=== PATIENT | female | born 1970 ===

== ENCOUNTER 2016-08-25 09:07 | Day surgery (SDC) | payer OTHER ==
[2016-08-25 09:29] VITALS: BMI 21.5
[2016-08-25 09:37] VITALS: O2SAT 100
[2016-08-25] MEDS ORDERED: Lactated Ringer's 500 ML IV ONE (10:18)
--- NOTE | 2016-08-25 10:20 | CP.SDSHP ---
Same Day Surgery H & P - History Proposed Procedure: EGD Pre-Op Diagnosis: dyspepsia - Previous Medical/Surgical History Comments: lupus - Allergies Allergies: Allergies No Known Allergies Allergy (Verified 07/14/16 16:36) - Current Medications Current Medications: see med list - Physical Exam General Appearance: NAD Vital Signs: Vital Signs 08/25/16 09:29 Temperature 99.1 F Pulse Rate 71 Respiratory 19 Rate Blood Pressure 108/70 O2 Sat by Pulse 100 Oximetry Mental Status: Alert & Oriented x3 Heart: WNL Lungs: WNL GI: WNL - {Optional Preform as Required} Abdomen: WNL - Impression Impression: 46 year old female with h/o lupus for evaluation of dyspepsia Pt. Evaluated Today:Candidate for Anesthesia & Procedure: Yes - Date & Time Date: 08/25/16 Time: 10:20 Short Stay Discharge - Short Stay Discharge Admitting Diagnosis/Reason for Visit: DYSPEPSIA, CONSTIPATION Disposition: HOME/ ROUTINE
[2016-08-25] MEDS ORDERED: Propofol 10 mg/ml Inj (20 ML) ONE (10:22)
[2016-08-25 12:10] VITALS: BP 100/64; PULSE 69; RESP 12; TEMP 98
== END 2016-08-25 11:50 | disposition home or self-care (01) ==
LOC: C.ENDO 09:07
PROVIDERS: ATTEND Internal Medicine Gastroenterology
DX: K29.50 Unspecified chronic gastritis without bleeding (principal)
CPT/HCPCS: 43239; 84703; 88305; J2704; J7120

== ENCOUNTER 2017-01-20 16:03 | Emergency (ER) | payer OTHER ==
[2017-01-20 16:04] VITALS: BMI 21.5
[2017-01-20 16:20] VITALS: RESP 18; TEMP 97.9; O2SAT 99
--- NOTE | 2017-01-20 17:50 | C.PDOC ---
History Of Present Illness Pt c/o b/l eye discomfort. Time Seen by Provider: 01/20/17 17:06 Chief Complaint (Nursing): Eye Problem History Per: Patient Onset/Duration Of Symptoms: Days (about 2 weeks) Current Symptoms Are (Timing): Still Present Injury To Eye?: No Severity: Moderate Quality: "Pain" Wears Contact Lens?: No Associated Symptoms: Other (discomfort) Additional History Per: Prior Records Past Medical History Reviewed: Historical Data, Nursing Documentation, Vital Signs Vital Signs: Last Vital Signs Temp 97.9 F 01/20/17 16:16 Pulse 79 01/20/17 16:16 Resp 18 01/20/17 16:16 BP 104/73 01/20/17 16:16 Pulse Ox 99 01/20/17 16:16 - Medical History PMH: Anemia (WITH IRON INFUSION), Gastritis Other PMH: Lupus Surgical History: Cholecystectomy, Endoscopy - [facility] Procedures ESOPHAGOGASTRODUODENOSCOPY [EGD] W/CLOSED BIOPSY (12/25/14) Family History: States: Unknown Family Hx - Social History Hx Tobacco Use: No Hx Alcohol Use: No Hx Substance Use: No - Immunization History Hx Tetanus Toxoid Vaccination: No Hx Influenza Vaccination: No Hx Pneumococcal Vaccination: No Review Of Systems Except As Marked, All Systems Reviewed And Found Negative. Constitutional: Negative for: Fever, Weakness Eyes: Negative for: Redness Cardiovascular: Negative for: Chest Pain Respiratory: Negative for: Shortness of Breath Gastrointestinal: Negative for: Vomiting, Abdominal Pain Musculoskeletal: Negative for: Neck Pain Skin: Negative for: Rash Neurological: Negative for: Weakness, Numbness, Seizures, Altered Mental Status Physical Exam - Physical Exam Appears: Non-toxic, No Acute Distress Skin: Normal Color, Warm, Dry Head: Atraumatic, Normacephalic Eye(s): bilateral: Normal Inspection, PERRL, EOMI Neck: Normal ROM, Supple Cardiovascular: Rhythm Regular Respiratory: Normal Breath Sounds, No Accessory Muscle Use Gastrointestinal/Abdominal: Soft, No Tenderness Extremity: Normal ROM Neurological/Psych: Oriented x3, Normal Motor, Normal Sensation ED Course And Treatment O2 Sat by Pulse Oximetry: 99 Pulse Ox Interpretation: Normal Progress Note: Pt already has an appointment with the gas line installer in 1 week. Disposition Counseled Patient/Family Regarding: Diagnosis, Need For Followup, Rx Given - Disposition Referrals: Doug Espionsa MD [Staff Provider] - Disposition: HOME/ ROUTINE Disposition Time: 17:51 Condition: STABLE Additional Instructions: Follow up with the gas line installer (eye doctor) as scheduled for further evaluation and treatment. Return to the ER if you develop worsening of symptoms or if you have any other concerns. Prescriptions: Polyethylene Glycol/Polyvinyl [Artificial Tears] 1 drop OU QID PRN #1 bottle PRN Reason: Dry Eyes Forms: [facility] (Mauritanian), General Discharge Instructions, Gen Discharge Inst Mauritanian Print Language: STATELESS - Clinical Impression Clinical Impression: Discomfort of both eyes
[2017-01-20 18:20] VITALS: BP 106/75; PULSE 81
== END 2017-01-20 18:16 | disposition home or self-care (01) ==
LOC: C.ER 16:03
DX: H57.13 Ocular pain, bilateral (principal); M32.9 Systemic lupus erythematosus, unspecified

== ENCOUNTER 2017-02-03 21:43 | Emergency (ER) | payer OTHER ==
[2017-02-03 21:43] VITALS: BMI 21.5
[2017-02-03 22:37] VITALS: O2SAT 99
--- NOTE | 2017-02-04 00:43 | CT ---
EXAM: CT Head Without Intravenous Contrast CLINICAL HISTORY: 46 years old, female; Pain; Headache; Patient HX: 9-26-15; Additional info: Str TECHNIQUE: Axial computed tomography images of the head/brain without intravenous contrast. All CT scans at this facility use one or more dose reduction techniques, viz.: automated exposure control; ma/kV adjustment per patient size (including targeted exams where dose is matched to indication; i.e. head); or iterative reconstruction technique. Coronal and sagittal reformatted images were created and reviewed. COMPARISON: MR - BRAIN WITHOUT CONTRAST 07/07/2015 10:34:49 AM FINDINGS: Brain: No intracranial hemorrhage. No mass. No definite edema. Ventricles: No hydrocephalus. Bones/joints: No acute fracture. Soft tissues: Unremarkable. Sinuses: No acute sinusitis. Mastoid air cells: No mastoid effusion. Orbits: Unremarkable as visualized. IMPRESSION: 1. No acute intracranial abnormality.
[2017-02-04 01:03] VITALS: BP 107/74; PULSE 72; RESP 18; TEMP 97.7
--- NOTE | 2017-02-04 01:36 | C.PDOC ---
History Of Present Illness 46 year old female presents to the ED with complaints of left sided facial swelling associated with tingling and ear pain intermittiently for 5-6 days with associated headache and nasal congestion. Patient denies mouth pain, fever , weakness, or numbness. Time Seen by Provider: 02/03/17 22:55 Chief Complaint (Nursing): Headache History Per: Patient History/Exam Limitations: no limitations Onset/Duration Of Symptoms: Days (5-6 days ) Current Symptoms Are (Timing): Still Present Preceeding Symptoms: None Associated Symptoms: denies: Nausea, Vomiting, Extremity Weakness Recent travel outside of the [place]: No Past Medical History Reviewed: Historical Data, Nursing Documentation, Vital Signs Vital Signs: Last Vital Signs Temp 97.7 F 02/04/17 01:00 Pulse 72 02/04/17 01:00 Resp 18 02/04/17 01:00 BP 107/74 02/04/17 01:00 Pulse Ox 99 02/04/17 03:44 - Medical History PMH: Anemia (WITH IRON INFUSION), Gastritis Surgical History: Cholecystectomy, Endoscopy - [facility] Procedures ESOPHAGOGASTRODUODENOSCOPY [EGD] W/CLOSED BIOPSY (12/25/14) Family History: States: Unknown Family Hx - Social History Hx Tobacco Use: No Hx Alcohol Use: No Hx Substance Use: No - Immunization History Hx Tetanus Toxoid Vaccination: No Hx Influenza Vaccination: No Hx Pneumococcal Vaccination: No Review Of Systems Constitutional: Negative for: Fever, Chills ENT: Positive for: Ear Pain (left ear pain), Nose Congestion, Other (left facial swelling ). Negative for: Ear Discharge, Nose Pain, Nose Discharge, Throat Pain, Throat Swelling Respiratory: Negative for: SOB with Excertion Gastrointestinal: Negative for: Nausea, Vomiting Skin: Negative for: Rash Neurological: Positive for: Headache. Negative for: Weakness, Numbness Physical Exam - Physical Exam Appears: Non-toxic, No Acute Distress Skin: Warm, Dry Head: Atraumatic, Tenderness (minimal tenderness to left frontal sinus area ), No Swelling, No Abrasion, No Laceration, Other (no facial paresis or droop) Eye(s): bilateral: Normal Inspection, PERRL, EOMI Ear(s): Bilateral: Normal Nose: Normal, No Discharge Oral Mucosa: Moist Teeth: Other (no dental abscess ) Throat: Normal, No Erythema, No Exudate Neck: Normal ROM, Supple Chest: Symmetrical, No Deformity Cardiovascular: Rhythm Regular, No Murmur Respiratory: Normal Breath Sounds, No Rales, No Rhonchi, No Wheezing Extremity: Normal ROM, No Tenderness Extremity: Bilateral: Atraumatic, Normal ROM Neurological/Psych: Oriented x3, Normal Speech, Normal Cognition, Normal Cranial Nerves, No Cerebellar Signs, Normal Motor, Normal Sensation Gait: Steady ED Course And Treatment O2 Sat by Pulse Oximetry: 99 (RA) Pulse Ox Interpretation: Normal - CT Scan/US CT Head Without Intravenous Contrast Other Rad Studies (CT/US): Read By Radiologist, Radiology Report Reviewed CT/US Interpretation: FINDINGS: Brain: No intracranial hemorrhage. No mass. No definite edema. Ventricles: No hydrocephalus. Bones/joints: No acute fracture. Soft tissues: Unremarkable. Sinuses: No acute sinusitis. Mastoid air cells: No mastoid effusion. Orbits: Unremarkable as visualized. IMPRESSION : 1. No acute intracranial abnormality. Progress Note: Head CT was ordered and patient was given ultram. Pt agrees with plan and will follow up in clinic Reassessment Condition: Improved Disposition Counseled Patient/Family Regarding: Diagnosis, Need For Followup, Rx Given - Disposition Disposition: HOME/ ROUTINE Disposition Time: 01:34 Condition: STABLE Additional Instructions: Sabina las medicinas Sigue en clinica Regresa en emergencia si peor Prescriptions: Cetirizine HCl [Zyrtec] 10 mg PO DAILY #20 capsule Ibuprofen [Motrin] 600 mg PO Q6H #20 tab Mometasone Furoate [Nasonex] 2 spray NS DAILY #1 bottle Instructions: Rhinosinusitis (ED), Acute Headache (ED) Forms: [employer] (Romansh) Print Language: SLOVAK - Clinical Impression Clinical Impression: Sinusitis, Headache
== END 2017-02-04 01:52 | disposition home or self-care (01) ==
LOC: C.ER 21:43
DX: J32.9 Chronic sinusitis, unspecified (principal); R51 Headache

== ENCOUNTER 2017-05-29 18:21 | Emergency (ER) | payer OTHER ==
[2017-05-29 18:21] VITALS: BMI 21.5
[2017-05-29 18:31] VITALS: BP 101/69; PULSE 94; TEMP 99.2; O2SAT 99
--- NOTE | 2017-05-29 18:47 | C.PDOC ---
History Of Present Illness 46 y/o female presents to the ER complaining of cough which has been present for 2 weeks. Patient reprots that she was seen at another hospital and treated with Zithromax. Patient states that she finished the Zithromax but she still has a cough. Patient reports having a subjective fever. Patient denies having shortness of breath or chest pain Time Seen by Provider: 05/29/17 18:33 Chief Complaint (Nursing): Cough, Cold, Congestion History Per: Patient History/Exam Limitations: no limitations Onset/Duration Of Symptoms: Days Current Symptoms Are (Timing): Still Present Associated Symptoms: Fever (subjective fever), Cough Severity: Moderate Past Medical History Reviewed: Historical Data, Nursing Documentation, Vital Signs Vital Signs: Last Vital Signs Temp 99.2 F 05/29/17 18:27 Pulse 94 H 05/29/17 18:27 Resp 20 05/29/17 19:39 BP 101/69 05/29/17 18:27 Pulse Ox 99 05/29/17 19:42 - Medical History PMH: Anemia (WITH IRON INFUSION), Gastritis, Migraine Denies: Chronic Kidney Disease Surgical History: Cholecystectomy, Endoscopy - [facility] Procedures ESOPHAGOGASTRODUODENOSCOPY [EGD] W/CLOSED BIOPSY (12/25/14) Family History: States: No Known Family Hx - Social History Hx Tobacco Use: No Hx Alcohol Use: No Hx Substance Use: No - Immunization History Hx Tetanus Toxoid Vaccination: No Hx Influenza Vaccination: No Hx Pneumococcal Vaccination: No Review Of Systems Constitutional: Positive for: Fever (subjective fever). Negative for: Chills ENT: Negative for: Nose Congestion, Throat Pain Cardiovascular: Negative for: Chest Pain Respiratory: Positive for: Cough. Negative for: Shortness of Breath Gastrointestinal: Negative for: Nausea, Vomiting, Diarrhea Genitourinary: Negative for: Dysuria Musculoskeletal: Negative for: Neck Pain Neurological: Negative for: Headache, Dizziness Physical Exam - Physical Exam Appears: Non-toxic, No Acute Distress Skin: Normal Color, Warm Head: Atraumatic, Normacephalic Eye(s): bilateral: Normal Inspection, EOMI Ear(s): Bilateral: Normal Nose: Normal Oral Mucosa: Moist Throat: Normal, No Erythema, No Exudate Neck: Supple Chest: Symmetrical Cardiovascular: Rhythm Regular, No Murmur Respiratory: Normal Breath Sounds, No Accessory Muscle Use, No Rales, No Rhonchi , No Wheezing Gastrointestinal/Abdominal: Normal Exam, Soft, No Tenderness Extremity: Normal ROM Neurological/Psych: Oriented x3, Normal Speech, Normal Motor, Normal Sensation Gait: Steady ED Course And Treatment O2 Sat by Pulse Oximetry: 99 (RA) Pulse Ox Interpretation: Normal - Radiology CXR: Interpreted by Me, Viewed By Me CXR Interpretation: Yes: No Acute Disease Medical Decision Making Medical Decision Making: patient with cough for 2 weeks. No fever in ED and lungs clear bilaterally. patient seen on 05/16 at [facility] treated with Zithromax Plan: --CXR CXR was normal. Patient was given prednisone and cough medicine. Patient discharged and told to follow up with primary care doctor. Disposition Counseled Patient/Family Regarding: Diagnosis, Need For Followup, Rx Given - Disposition Referrals: Cristian Keane MD [Staff Provider] - Disposition: HOME/ ROUTINE Disposition Time: 19:30 Condition: GOOD Additional Instructions: Recetas enviadas a orosco farmacia [place] prednisona diariamente [place] medicamento para la tos segn sea necesario Trace un seguimiento con orosco mdico de cabecera Prescriptions sent to your pharmacy Take prednisone daily Take cough medicine as needed follow up with your primary doctor Prescriptions: Prednisone 50 mg PO DAILY #4 tablet Promethazine DM [Phenergan DM Syrup] 5 ml PO Q8 PRN #3 oz PRN Reason: Cough Instructions: Upper Respiratory Infection (ED) Forms: [employer] (Surinamese) Print Language: HUNGARIAN - POA Present On Arrival: None - Clinical Impression Clinical Impression: Upper respiratory infection - PA / SLOT KEY PERSON / Resident Statement MD/DO has reviewed & agrees with the documentation as recorded. - Scribe Statement The provider has reviewed the documentation as recorded by the Cortneyibe Janki Martinez Provider Attestation All medical record entries made by the Scribe were at my direction and personally dictated by me. I have reviewed the chart and agree that the record accurately reflects my personal performance of the history, physical exam, medical decision making, and the department course for this patient. I have also personally directed, reviewed, and agree with the discharge instructions and disposition.
[2017-05-29 19:39] VITALS: RESP 20
--- NOTE | 2017-05-30 17:24 | RAD ---
HISTORY: cough COMPARISON: 02/03/2015 TECHNIQUE: Chest PA and lateral FINDINGS: LUNGS: No active pulmonary disease. PLEURA: No significant pleural effusion identified. No pneumothorax apparent. CARDIOVASCULAR: Normal. OSSEOUS STRUCTURES: No significant abnormalities. VISUALIZED UPPER ABDOMEN: Normal. OTHER FINDINGS: None. IMPRESSION: No active disease.
== END 2017-05-29 19:39 | disposition home or self-care (01) ==
LOC: C.ER 18:21
DX: J06.9 Acute upper respiratory infection, unspecified (principal)

== ENCOUNTER 2017-09-02 01:05 | Emergency (ER) | payer OTHER ==
[2017-09-02 01:23] VITALS: BMI 24.6
[2017-09-02 01:30] VITALS: RESP 18
--- NOTE | 2017-09-02 02:00 | C.PDOC ---
History Of Present Illness 47 year old female presents to the ED c/o right arm pain for the pat 3 weeks. Patient was seen by her PMD yesterday who told her pain could be due to a right upper back lipoma. Patient was given prescription for Motrin and referral to a surgeon. However patient still c/o of pain and is requesting reevaluation. Patient denies injury, fall, trauma, CP, SOB. Time Seen by Provider: 09/02/17 01:31 Chief Complaint (Nursing): Upper Extremity Problem/Injury History Per: Patient History/Exam Limitations: no limitations Onset/Duration Of Symptoms: Days Current Symptoms Are (Timing): Still Present Quality: "Pain" Exacerbating Factor(s): Movement Recent travel outside of the [place]: No Additional History Per: Patient Past Medical History Reviewed: Historical Data, Nursing Documentation, Vital Signs Vital Signs: Last Vital Signs Temp 98.1 F 09/02/17 02:30 Pulse 75 09/02/17 02:30 Resp 18 09/02/17 02:30 BP 125/71 09/02/17 02:30 Pulse Ox 98 09/02/17 03:58 - Medical History PMH: Anemia (WITH IRON INFUSION), Gastritis, Migraine Denies: Chronic Kidney Disease Surgical History: Cholecystectomy, Endoscopy - [facility] Procedures ESOPHAGOGASTRODUODENOSCOPY [EGD] W/CLOSED BIOPSY (12/25/14) Family History: States: Unknown Family Hx - Social History Hx Tobacco Use: No Hx Alcohol Use: No Hx Substance Use: No - Immunization History Hx Tetanus Toxoid Vaccination: No Hx Influenza Vaccination: No Hx Pneumococcal Vaccination: No Review Of Systems Constitutional: Negative for: Fever, Chills Cardiovascular: Negative for: Chest Pain Respiratory: Negative for: Shortness of Breath Musculoskeletal: Positive for: Shoulder Pain Skin: Negative for: Rash Neurological: Negative for: Weakness, Numbness Physical Exam - Physical Exam Appears: Non-toxic, No Acute Distress Skin: Normal Color, Warm, Dry Head: Atraumatic, Normacephalic Eye(s): bilateral: Normal Inspection Nose: No Discharge Oral Mucosa: Moist Neck: Normal ROM, Supple Chest: Symmetrical Cardiovascular: Rhythm Regular, No Murmur Respiratory: Normal Breath Sounds, No Rales, No Rhonchi, No Wheezing Gastrointestinal/Abdominal: Soft, No Tenderness, No Guarding, No Rebound Back: Other (lipoma 4x6 cm lipoma in her upper back, right posterior shoulder) Extremity: Normal ROM, No Tenderness, Capillary Refill (< 2 seconds), No Swelling Extremity: Bilateral: Normal Color And Temperature, Normal ROM Pulses: Left Radial: Normal, Right Radial: Normal Neurological/Psych: Oriented x3, Normal Motor, Normal Sensation Gait: Steady ED Course And Treatment O2 Sat by Pulse Oximetry: 98 (ON RA) Pulse Ox Interpretation: Normal Progress Note: Plan: - Toradol 15 mg IM. - arm sling. On reassessment, patient is resting comfortably, and is in no acute distress. Patient was instructed to follow up with general surgeon for further evaluation. Disposition Counseled Patient/Family Regarding: Diagnosis, Need For Followup, Rx Given - Disposition Referrals: [facility] [Outside] Disposition: HOME/ ROUTINE Disposition Time: 02:09 Condition: STABLE Additional Instructions: Please follow up with pMD Continue ibuprofen Make appointment with Gen surgery as referred Return to ER if worse Instructions: Lipoma , Shoulder Pain (DC) Forms: [employer] (Lithuanian) - Clinical Impression Clinical Impression: Lipoma of back, Right shoulder pain - PA / RESIDENTIAL TECH / Resident Statement MD/DO has reviewed & agrees with the documentation as recorded. - Scribe Statement The provider has reviewed the documentation as recorded by the Scribe Som Nicole All medical record entries made by the Cortneyibidalia were at my direction and personally dictated by me. I have reviewed the chart and agree that the record accurately reflects my personal performance of the history, physical exam, medical decision making, and the department course for this patient. I have also personally directed, reviewed, and agree with the discharge instructions and disposition.
[2017-09-02 02:37] VITALS: BP 125/71; PULSE 75; TEMP 98.1
[2017-09-02 03:53] VITALS: O2SAT 98
== END 2017-09-02 02:37 | disposition home or self-care (01) ==
LOC: C.ER 01:05
DX: D17.1 Benign lipomatous neoplasm of skin and subcutaneous tissue of trunk (principal); M25.511 Pain in right shoulder
CPT/HCPCS: 82948; 96372; 99285; J1885

== ENCOUNTER 2018-01-05 11:11 | Day surgery (SDC) | payer OTHER ==
[2017-12-17 11:51] VITALS: BMI 24.6
[2018-01-05] MEDS ORDERED: Lidocaine 2% MPF (5 ml) Inj ONE ×2 (13:52→14:10)
[2018-01-05] MEDS ORDERED: ceFAZolin IV 1 gm in Dextrose 1 GM/50 ML BAG IVPB ONE (13:54)
[2018-01-05] MEDS ORDERED: Bupivacaine 0.25% 20 ML INJ IJ ONE (13:54)
[2018-01-05] MEDS ORDERED: Propofol 10 mg/ml Inj (20 ML) ONE ×2 (14:07→14:15)
[2018-01-05] MEDS ORDERED: Midazolam 2 MG/2 ML VIAL ONE (14:07)
[2018-01-05] MEDS ORDERED: ePHEDrine 50 mg/ml Inj ONE (14:37)
--- NOTE | 2018-01-05 14:56 | PCM.SURG1 ---
Surgeon's Initial Post Op Note - Surgeon's Notes Surgeon: Eber Extruder Tender: Jamie PGY4 Type of Anesthesia: IV Sedation, Local Pre-Operative Diagnosis: R shoulder lipoma Operative Findings: lipoma Post-Operative Diagnosis: same Operation Performed: Excision of right shoulder lipoma Specimen/Specimens Removed: lipoma Estimated Blood Loss: EBL {In ML}: 5 Blood Products Given: N/A Drains Used: No Drains Post-Op Condition: Good Date of Surgery/Procedure: 01/05/18 Time of Surgery/Procedure: 14:55
[2018-01-05] MEDS ORDERED: HYDROmorphone 0.5 mg/0.5 ml ISec IVP PRN (14:58)
[2018-01-05 16:30] VITALS: RESP 16; O2SAT 100
[2018-01-05 16:58] VITALS: BP 101/58; PULSE 72; TEMP 98
--- NOTE | 2018-01-12 18:01 | PCM.OP ---
Operative Report - Operative Report Date of Surgery/Procedure: 01/05/18 Time of Surgery/Procedure: 16:00 Surgeon: Reinaldo Velázquez MD Thermodynamics Teacher: Sanchez Ayala DO (PGY4 resident) Anesthesia/Sedation: MAC; 1% lidocaine+0.25 marcaine mix local Pre-Operative Diagnosis: right posterior shoulder soft tissue mass Post-Operative Diagnosis: right posterior shoulder soft tissue lipomatous mass Indication for Surgery: The patient is a 47 year old female with history of a lump on her right posterior shoulder noted several years ago. It has slowly grown in size become bothersome wishes to have this removed for symptoms and also for cosmetic reasons. Details of HPI as documented in patients chart. All potential risks, benefits, and complications of the procedure were discussed with the patient, and informed consent was obtained prior to the operation. Operative Findings: A 7x7cm mass of adipose tissue most likely representing a lipoma was found in the patients right posterior shoulder/upperback. No muscle involvement. Procedure/Operation Description: PROCEDURE PERFORMED: Excision of lipomatous soft tissue mass of posterior right shoulder; Layered wound closure. DETAILS OF OPERATION: Patient was taken to operating room. Postioned left lateral decubitus exposing her posterior right shoulder. Sedation and monitroing provided by anesthesia. Foam padding provided for face, and separate bolster padding for right arm. Pillow place under legs. A safety strap was then placed across the hips. 1 gram of Ancef was given within 30 minutes prior to incision. SCDs were placed for thromboprophylaxis. No hair removal was necessary. Right upper posterior shoulder and back prepped and draped in sterile fashion. A time out was performed prior to incision. The borders of the soft tissue mass were marked with marker. Next, approximately 20cc of 1% lidocaine mixed with 0.25% Marcaine were used to locally anesthetize the skin directly over the mass. A #10 blade scalpel was utilized to make an approximately 4cm transverse incision over the soft tissue mass. Upon incising the skin and the subcutaneous tissue readily and there was the fatty tissue mass. The mass was circumferentially dissected using a combination of blunt, sharp and electrocautery dissection. In total the specimen measured [id number] in dimension. The wound was then copiously irrigated, and Hemostasis was obtained. Additional local anesthesia (10mL) was injected into the deeper layer of tissue. The wound was closed in multiple layers to obliterate the large wound cavity. #2-0 Vicryl running superficial fascial sutures were first placed, followed by 3- running Vicryl suture for deep dermal and sub cutaneous tissue, and finally skin closed using running 4-0 Monocryl. 10mL of local anesthesia was again given into the skin around the incision. Dermabond was applied to the skin, and once dry a pressure dressing was applied with 4x4 gauze tape. Patient then placed back in supine position and [facility], and taken to recovery in stable condition. I was present for the entirety of the operation. Sponge needle, and instrument counts were correct. Estimated Blood Loss: 5mL Drains: none Complications: none Specimen: Lipomatous mass, right posterior shoulder Discharge & Condition: above
== END 2018-01-05 17:06 | disposition home or self-care (01) ==
LOC: C.SDS 11:11
PROVIDERS: ATTEND Surgery
DX: D17.21 Benign lipomatous neoplasm of skin and subcutaneous tissue of right arm (principal)
CPT/HCPCS: 11400; 88304; J0690; J1885; J2250; J2704; J3010

== ENCOUNTER 2018-01-07 21:46 | Emergency (ER) | payer OTHER ==
[2018-01-07 21:47] VITALS: BMI 24.6
[2018-01-07 21:55] VITALS: BP 110/73; PULSE 83; RESP 20; TEMP 98.9; O2SAT 98
--- NOTE | 2018-01-07 22:57 | C.PDOC ---
History Of Present Illness 47-year-old female presents to the ED for evaluation of a skin rash which gradually developed since this morning. Patient admits she started taking Ibuprofen for the past few days after she underwent arthroscopic right shoulder surgery. Patient reports rash is itchy and that it is mostly around her face and upper chest area. Patient denies fever, chills, drooling, throat swelling or tightness, chest pain, shortness of breath, wheezing, denies any other active complaints. Ambulate to ED for evaluation, not in resp. distress. Time Seen by Provider: 01/07/18 22:03 Chief Complaint (Nursing): Abnormal Skin Integrity History Per: Patient History/Exam Limitations: no limitations Onset/Duration Of Symptoms: Hrs, Gradual Current Symptoms Are (Timing): Still Present Quality Of Symptoms: Itching Additional History Per: Patient Past Medical History Reviewed: Historical Data, Nursing Documentation, Vital Signs Vital Signs: Last Vital Signs Temp 98.9 F 01/07/18 21:49 Pulse 83 01/07/18 21:49 Resp 20 01/07/18 21:49 BP 110/73 01/07/18 21:49 Pulse Ox 98 01/07/18 23:59 - Medical History PMH: Anemia, Gastritis, Migraine Surgical History: Cholecystectomy, Endoscopy - [facility] Procedures ESOPHAGOGASTRODUODENOSCOPY [EGD] W/CLOSED BIOPSY (12/25/14) Family History: States: Unknown Family Hx - Social History Hx Tobacco Use: No Hx Alcohol Use: No Hx Substance Use: No - Immunization History Hx Tetanus Toxoid Vaccination: No Hx Influenza Vaccination: No Hx Pneumococcal Vaccination: No Review Of Systems Constitutional: Negative for: Fever, Chills ENT: Negative for: Mouth Swelling, Throat Pain, Throat Swelling, Other ( drooling ) Cardiovascular: Negative for: Chest Pain Respiratory: Negative for: Cough, Shortness of Breath, Wheezing Skin: Positive for: Rash (itchy, to face and chest ) Physical Exam - Physical Exam Appears: Well, Non-toxic, No Acute Distress Skin: Rash (diffuse erythematous macular rash to facial region and scattered to anterior chest wall. no cellulitis. ) Head: Normacephalic Eye(s): bilateral: PERRL Nose: No Flaring Oral Mucosa: Moist, No Drooling Tongue: No Swelling Lips: No Swelling Throat: No Erythema, No Exudate, No Drooling, Other (uvula midline, no edema.) Neck: Trachea Midline, Supple Chest: Symmetrical, No Deformity, No Tenderness Cardiovascular: Rhythm Regular, No Murmur Respiratory: Normal Breath Sounds, No Rales, No Rhonchi, No Wheezing Extremity: Normal ROM, Capillary Refill (less than 2 seconds ), No Swelling Neurological/Psych: Oriented x3, Normal Speech, Normal Cognition ED Course And Treatment O2 Sat by Pulse Oximetry: 98 (on RA) Pulse Ox Interpretation: Normal Progress Note: Benadryl PO, Pepcid PO, and Prednisone PO given. On re-eval, pt is afebrile, hemodynamicaly stable. Non-toxic. Tolerate po well in ED. PulseOx 98% RA. ENT: No acute findings. uvula midline, no edema. neck: SUpple , (-) JVD. Lungs: CTA B/L, BS equal B/L. SKin: diffuse macular/papular erythematous rash to face and scattered to anterior chest. No edema, no discharge, no cellulitis. Pt has clinical findings c/w rash r/o allergic reaction to IBuprofen. Pt advised to stop IBuprofen immediately. Ref. to F/U with PMD, Senior Net Application Developer in 2-3 days for re-eavl. return to ED if any worsening or new changes. Disposition Counseled Patient/Family Regarding: Diagnosis, Need For Followup, Rx Given - Disposition Referrals: Cristian Keane MD [Staff Provider] - Disposition: HOME/ ROUTINE Disposition Time: 22:57 Condition: STABLE Additional Instructions: STOP IBUPROFEN IMMEDIATELY DUE TO ALLERGIC REACTION TAKE MEDICATION PRESCRIBED FOLLOW UP WITH PMD IN 2 DAYS FOR RE-EVALUATION. RETURN TO ED IF ANY WORSENING OR NEW CHANGES. Prescriptions: DiphenhydrAMINE [Benadryl] 25 mg PO BID #10 cap Famotidine [Pepcid] 20 mg PO BID #10 tab Prednisone [Deltasone] 40 mg PO DAILY #6 tablet Instructions: Adverse Drug Reactions, Adult (DC) Forms: [employer] (Croatian) Print Language: NORWEGIAN - Clinical Impression Clinical Impression: Allergic reaction - PA / INSPECTOR PLUMBING / Resident Statement MD/DO has reviewed & agrees with the documentation as recorded. - Scribe Statement The provider has reviewed the documentation as recorded by the Scribe (Dahpnie Velázquez) All medical record entries made by the Scribe were at my direction and personally dictated by me. I have reviewed the chart and agree that the record accurately reflects my personal performance of the history, physical exam, medical decision making, and the department course for this patient. I have also personally directed, reviewed, and agree with the discharge instructions and disposition.
== END 2018-01-07 23:42 | disposition home or self-care (01) ==
LOC: C.ER 21:46
DX: T78.40XA Allergy, unspecified, initial encounter (principal); X58.XXXA Exposure to other specified factors, initial encounter